=== PATIENT | female | born 1960 | race Caucasian/White ===

== ENCOUNTER 2018-07-31 10:33 | Inpatient (IN) ==
[2018-07-31 11:19] LABS: Basophils % 0.2 % (0.0-0.8); Eosinophils # 0.1 10*3/uL (0.0-0.87); Eosinophils % 0.4 % (0.00-10.9); Hematocrit 42.4 VOL% (35.7-47.0); Hemoglobin 13.6 GM/DL (12.0-16.0); Immature Granulocytes % 0.3 %; Immature Granulocytes Absolute 0.04 #; Lymphocytes # 1.3 10*3/uL (1.4-4.0); Lymphocytes % 10.5 % (21.3-54.2); Mean Corpuscular HGB Conc 32.1 GM/DL (32-36); Mean Corpuscular Volume 83.8 FL (87-102); Mean Platelet Volume 11.8 FL (9.6-12.0); Monocytes % 5.1 % (1.7-12.7); Neutrophils % 83.5 % (38.7-73.9); Platelet Count 199 T/CUMM (130-400); Red Blood Count 5.06 MC/CUMM (3.8-5.5); Red Cell Distribution Width 12.3 % (9.3-17.3); White Blood Count 12.1 T/CUMM (4-12)
[2018-07-31 11:23] LABS: Apearance,Urine CLEAR (Clear); Bacteria,Urine Occasional /HPF (Few); Bilirubin,Urine Negative (Negative); Blood, Urine Negative (Negative); Glucose,Urine (UA) Negative (Negative); Ketones,Urine 20 mg/dL (Negative); Mucus,Urine Few /LPF (Occasional); Nitrite,Urine Negative (Negative); Protein,Urine Negative; RBC,Urine 1 /HPF (0-4); Squamous Epithelial Cell,Urine Occasional /HPF (0-10); Urine Color Yellow (Yellow); Urine Specific Gravity 1.025 (1.001-1.035); WBC,Urine 1 /HPF (0-6)
[2018-07-31] MEDS ORDERED: ONDANSETRON 4 MG/2 ML VIAL IV STA (11:40)
[2018-07-31] MEDS ORDERED: SODIUM CHLORIDE 0.9% 1,000 ML IV STA (11:40)
[2018-07-31] MEDS ORDERED: MORPHINE 4 MG/1 ML VIAL IV STA (11:40)
[2018-07-31 11:42] LABS: Platelet Estimate Normal
[2018-07-31 12:24] LABS: Albumin 4.3 G/DL (3.4-5.0); Bilirubin,Total 0.6 MG/DL (0.2-1.0); Calcium 8.9 MG/DL (8.5-10.1); Osmolality,Calculated 278.4 MOS/KG (273-304); Total Protein 7.6 G/DL (6.4-8.3)
[2018-07-31] MEDS ORDERED: ALUM/MAG/SIMETH/LIDO VISC 1:1 30 ML BOTTLE PO STA (14:07)
[2018-07-31] MEDS ORDERED: ACETAMINOPHEN 325 MG TABLET PO PRN (16:25)
[2018-07-31] MEDS: SODIUM CHLORIDE 0.9% 1,000 ML IV SCH (19:46)
[2018-07-31] MEDS: MORPHINE 4 MG/1 ML VIAL IV PRN (19:47)
[2018-07-31] MEDS: ONDANSETRON 4 MG/2 ML VIAL IV PRN (19:54)
[2018-08-01 05:42] LABS: Basophils % 0.2 % (0.0-0.8); Eosinophils # 0.1 10*3/uL (0.0-0.87); Eosinophils % 0.8 % (0.00-10.9); Hematocrit 36.5 VOL% (35.7-47.0); Hemoglobin 11.8 GM/DL (12.0-16.0); Immature Granulocytes % 0.7 %; Immature Granulocytes Absolute 0.06 #; Lymphocytes # 0.9 10*3/uL (1.4-4.0); Lymphocytes % 9.4 % (21.3-54.2); Mean Corpuscular HGB Conc 32.3 GM/DL (32-36); Mean Corpuscular Volume 84.5 FL (87-102); Mean Platelet Volume 11.6 FL (9.6-12.0); Neutrophils % 82.9 % (38.7-73.9); Platelet Count 167 T/CUMM (130-400); Red Blood Count 4.32 MC/CUMM (3.8-5.5); Red Cell Distribution Width 12.3 % (9.3-17.3); White Blood Count 9.2 T/CUMM (4-12)
[2018-08-01 06:11] LABS: Calcium 8.4 MG/DL (8.5-10.1); Osmolality,Calculated 279.3 MOS/KG (273-304); Risk Ratio 2.14; Thyroid Stimulating Hormone 0.557 uIU/ml (0.358-3.74); VLDL CHOLESTEROL 12.4 MG/DL
[2018-08-01] MEDS: PANTOPRAZOLE 40 MG TABLET PO SCH (09:36)
[2018-08-01] MEDS: SODIUM CHLORIDE 0.9% 1,000 ML IV SCH (12:25)
[2018-08-01] MEDS: MORPHINE 4 MG/1 ML VIAL IV PRN (19:37)
[2018-08-01] MEDS: ONDANSETRON 4 MG/2 ML VIAL IV PRN (19:47)
[2018-08-01] MEDS: FAMOTIDINE 20 MG TABLET PO SCH (20:33)
[2018-08-01] MEDS: ATORVASTATIN 10 MG TABLET PO SCH (20:33)
[2018-08-02] MEDS: SODIUM CHLORIDE 0.9% 1,000 ML IV SCH ×2 (01:38→17:43)
[2018-08-02 05:03] LABS: Basophils % 0.2 % (0.0-0.8); Eosinophils # 0.2 10*3/uL (0.0-0.87); Eosinophils % 2.6 % (0.00-10.9); Hematocrit 37.2 VOL% (35.7-47.0); Hemoglobin 11.7 GM/DL (12.0-16.0); Immature Granulocytes % 0.3 %; Immature Granulocytes Absolute 0.02 #; Lymphocytes # 1.2 10*3/uL (1.4-4.0); Lymphocytes % 18.8 % (21.3-54.2); Mean Corpuscular HGB Conc 31.5 GM/DL (32-36); Mean Corpuscular Volume 85.9 FL (87-102); Mean Platelet Volume 11.5 FL (9.6-12.0); Monocytes % 5.8 % (1.7-12.7); Neutrophils % 72.3 % (38.7-73.9); Platelet Count 171 T/CUMM (130-400); Red Blood Count 4.33 MC/CUMM (3.8-5.5); White Blood Count 6.2 T/CUMM (4-12)
[2018-08-02 05:23] LABS: Calcium 8.3 MG/DL (8.5-10.1); Osmolality,Calculated 280.1 MOS/KG (273-304)
[2018-08-02] MEDS: LEVOTHYROXINE 75 MCG TABLET PO SCH (06:17)
[2018-08-02] MEDS ORDERED: LIDOCAINE 2% 5 ML VIAL ONE (09:00)
[2018-08-02] MEDS ORDERED: PROPOFOL 200 MG/20 ML VIAL IV ONE ×2 (09:00→14:27)
[2018-08-02] MEDS ORDERED: cefOXitin 2,000 MG in SYRINGE 1 EACH IV ONE (12:37)
[2018-08-02] MEDS ORDERED: TISSUE ADHESIVE 1 EACH APPLICATOR TOP ONE (12:37)
[2018-08-02] MEDS ORDERED: BUPIVACAINE 0.25% /EPI 10 ML VIAL ONE (12:37)
[2018-08-02] MEDS: CITALOPRAM 40 MG TABLET PO SCH (13:05)
[2018-08-02] MEDS: PANTOPRAZOLE 40 MG TABLET PO SCH (13:05)
[2018-08-02] MEDS: LISINOPRIL/HCTZ 10-12.5 MG TABLET PO SCH (13:05)
[2018-08-02] MEDS ORDERED: SUGAMMADEX 200 MG/2 ML VIAL IV ONE (14:09)
[2018-08-02] MEDS ORDERED: SEVOFLURANE 1 UNIT/15 MINUTE INH ONE (14:28)
[2018-08-02] MEDS ORDERED: ONDANSETRON 4 MG/2 ML VIAL ONE (14:28)
[2018-08-02] MEDS ORDERED: MIDAZOLAM 2 MG/2 ML VIAL ONE (14:28)
[2018-08-02] MEDS ORDERED: fentaNYL 100 MCG/2 ML VIAL ONE (14:28)
[2018-08-02] MEDS ORDERED: KETOROLAC 30 MG/1 ML VIAL ONE (14:28)
[2018-08-02] MEDS ORDERED: DEXAMETHASONE 4 MG/1 ML VIAL ONE (14:28)
[2018-08-02] MEDS ORDERED: ACETAMINOPHEN 1,000 MG/100 ML VIAL IV ONE (14:29)
[2018-08-02] MEDS ORDERED: ROCURONIUM 100 MG/10 ML VIAL IV ONE (14:29)
[2018-08-02] MEDS ORDERED: NEOSTIGMINE 10 MG/10 ML VIAL ONE (14:29)
[2018-08-02] MEDS ORDERED: GLYCOPYRROLATE 0.4 MG/2 ML VIAL ONE (14:29)
[2018-08-02] MEDS ORDERED: SUCCINYLCHOLINE 200 MG/10 ML VIAL ONE (14:29)
[2018-08-02] MEDS ORDERED: PROMETHAZINE INJ 12.5 MG in SODIUM CHLORIDE 0.9% 50 ML IV ONE (15:22)
[2018-08-02] MEDS ORDERED: PROMETHAZINE 25 MG/1 ML VIAL IM ONE (15:28)
[2018-08-02] MEDS: FAMOTIDINE 20 MG TABLET PO SCH (21:17)
[2018-08-02] MEDS: ATORVASTATIN 10 MG TABLET PO SCH (21:17)
[2018-08-03 05:51] LABS: Hematocrit 36.9 VOL% (35.7-47.0); Hemoglobin 11.9 GM/DL (12.0-16.0); Immature Granulocytes % 0.3 %; Immature Granulocytes Absolute 0.02 #; Lymphocytes # 0.4 10*3/uL (1.4-4.0); Lymphocytes % 6.1 % (21.3-54.2); Mean Corpuscular HGB Conc 32.2 GM/DL (32-36); Mean Corpuscular Volume 84.4 FL (87-102); Mean Platelet Volume 11.5 FL (9.6-12.0); Monocytes % 2.1 % (1.7-12.7); Neutrophils % 91.5 % (38.7-73.9); Platelet Count 191 T/CUMM (130-400); Red Blood Count 4.37 MC/CUMM (3.8-5.5); Red Cell Distribution Width 11.8 % (9.3-17.3); White Blood Count 5.8 T/CUMM (4-12)
[2018-08-03 06:18] LABS: Alanine Aminotransferase 26 U/L (13-56); Albumin 2.8 G/DL (3.4-5.0); Alkaline Phosphatase 95 U/L (45-117); Aspartate Amino Transferase 23 U/L (0-37); Bilirubin,Total < 0.39 MG/DL (0.2-1.0); Blood Urea Nitrogen 12 MG/DL (7-18); Calcium 8.4 MG/DL (8.5-10.1); Glucose 117 MG/DL (74-106); Osmolality,Calculated 279.4 MOS/KG (273-304); Total Protein 6.5 G/DL (6.4-8.3)
[2018-08-03] MEDS: LEVOTHYROXINE 75 MCG TABLET PO SCH (06:30)
[2018-08-03] MEDS: SODIUM CHLORIDE 0.9% 1,000 ML IV SCH (06:34)
[2018-08-03 06:38] LABS: Anisocytosis Slight; Lymphocytes 7 % (20-55); Platelet Estimate Adequate; Segmented Neutrophils 87 % (50-85); Total Cells Counted 100
[2018-08-03] MEDS: LISINOPRIL/HCTZ 10-12.5 MG TABLET PO SCH (08:46)
[2018-08-03] MEDS: CITALOPRAM 40 MG TABLET PO SCH (08:46)
[2018-08-03] MEDS: PANTOPRAZOLE 40 MG TABLET PO SCH (08:46)
[2018-08-03 12:50] VITALS: BP 143/81
== END 2018-08-03 14:32 | disposition home or self-care (01) | DRG 419 ==
LOC: N.ED 10:33 → N.EDINP 17:25 → N.3E 17:43
PROVIDERS: ADMIT Internal Medicine; ATTEND Internal Medicine
PROC: LAPCHOL (2018-08-02 13:10)